=== PATIENT | female | born 1995 | race African-American/Black ===

== ENCOUNTER 2017-03-23 03:20 | Emergency (ER) | payer MEDICAID, OTHER ==
[~2017-03-23] VITALS: Ht 172.7 cm; Wt 80.0 kg
[~2017-03-23 03:20] MED LIST: BUSP10TA PO; LABE200T2 PO; MIRT30TA PO; NIFE20 PO
[2017-03-23 03:26] VITALS: PULSE 88; RESP 18; TEMP 98.1; O2SAT 100
[2017-03-23 03:28] VITALS: BP 136/80; PULSE 96; RESP 18; TEMP 98.1; O2SAT 100
--- NOTE | 2017-03-23 04:14 | PD ---
Physical Exam Time Seen by Provider: 04:13 Data Data Last Documented VS Vital Signs Date Time Temp Pulse Resp B/P Pulse Ox O2 Delivery O2 Flow Rate FiO2 03/23/17 03:28 98.1 96 18 136/80 100 Room Air [facility] Medical Record Reviewed: Yes Supervised Visit with SALEEM: No Procedures Procedure Narrative After the risks and benefits were discussed the following procedure was performed: INCISION AND DRAINAGE OF ABSCESS: The area was prepped and was sterilely draped. Topical ethyl chloride was used to anesthetize the area. The area was properly anesthetized. A [id number] scalpel was used to make a 1.5 -cm incision across the area of the abscess. Cultures were obtained. The abscess was drained an irrigated with normal saline. Quarter inch iodoform packing was placed in the wound. Sterile dressing applied. Patient advised to have packing removed in two days. Condition: Stable Ingrid James March 23, 2017 04:14
--- NOTE | 2017-03-23 04:31 | PD ---
HPI Chief Complaint: GI Complaint Time Seen by Provider: 03:57 Travel History International Travel<30 days: No Contact w/Intl Traveler<30days: No Traveled to known affect area: No History of Present Illness HPI 21-year-old female patient presents to the ER today with 2-3 days history of painful swelling on her buttocks. She states that there is no pain with bowel movements. She denies any fevers or any other issues. She states that the area is getting more painful and enlarging. Modifying Factors: None Associated Signs & Symptoms: Buttocks lump, pain Risk Factors: None PFSH Past Medical History Cardiovascular Problems: Yes (HTN) Hypertension: Yes Tetanus Vaccination: < 5 Years Influenza Vaccination: No ?: Not : 3 Para: 3 Past Surgical History Surgical History: No Previous Surgery Section: Yes (X2) Social History Alcohol Use: No Tobacco Use: No Substance Use: No Allergies-Medications (Allergen,Severity, Reaction): Coded Allergies: No Known Allergies (Unverified , 03/23/17) Reported Meds & Prescriptions Reported Meds & Active Scripts Active Nifedipine 20 Mg Cap 20 Mg PO DAILY Last refill until labs & visit (01/14/17) Labetalol (Labetalol HCl) 200 Mg Tab 200 Mg PO BID Last refill until labs & visit (01/14/17) Reported Buspirone (Buspirone HCl) 10 Mg Tab 10 Mg PO DAILY Mirtazapine 30 Mg Tab 30 Mg PO HS Review of Systems Except as stated in HPI: all other systems reviewed are Neg Physical Exam Narrative GENERAL: Well-developed young -[place] female patient currently in mild distress. Awake and oriented 3. SKIN: Focused skin assessment warm/dry. HEAD: Atraumatic. Normocephalic. EYES: Pupils equal and round. No scleral icterus. No injection or drainage. ENT: No nasal bleeding or discharge. Mucous membranes pink and moist. NECK: Trachea midline. No JVD. CARDIOVASCULAR: Regular rate and rhythm. No murmur appreciated. RESPIRATORY: No accessory muscle use. Clear to auscultation. Breath sounds equal bilaterally. GASTROINTESTINAL: Abdomen soft, non-tender, nondistended. Hepatic and splenic margins not palpable. RECTAL EXAM: There is a notable right buttocks 2 cm area of tenderness and fluctuance, stool is brown. No perirectal tenderness. MUSCULOSKELETAL: No obvious deformities. No clubbing. No cyanosis. No edema. NEUROLOGICAL: Awake and alert. No obvious cranial nerve deficits. Motor grossly within normal limits. Normal speech. PSYCHIATRIC: Appropriate mood and affect; insight and judgment normal. Data Data Last Documented VS Vital Signs Date Time Temp Pulse Resp B/P Pulse Ox O2 Delivery O2 Flow Rate FiO2 03/23/17 03:28 98.1 96 18 136/80 100 Room Air Orders Wound Culture And Gram Stain (03/23/17 04:13) MDM Medical Decision Making Medical Screen Exam Complete: Yes Emergency Medical Condition: Yes Medical Record Reviewed: Yes Differential Diagnosis Buttocks abscess versus perirectal abscess Narrative Course This appears to be a buttocks abscess with no signs of perirectal abscess. Case has been discussed with MARIAN who was able to do a incision and drainage on the patient without issues. Wound care instructions given. My plan would be to release her with follow-up to primary care physician for packing removal and wound check or to return to the ER she is not able to follow-up. The plan was discussed with the patient and she states understanding. Diagnosis Primary Impression: Abscess of buttock Med/Other Pt SpecificInfo: Prescription(s) given Scripts Ibuprofen (Motrin Ib)200 Mg [id number] Mg PO Q6H PRN (PAIN SCALE 1 TO 10) #21 TAB Ref 0 Prov:Apolinar Sun MD 03/23/17 Disposition: 01 DISCHARGE HOME Condition: Stable Apolinar Sun MD March 23, 2017 04:31
[2017-03-23] MEDS ORDERED: MOTR200T4 PO (04:43)
== END 2017-03-23 05:09 | disposition home or self-care (01) ==
LOC: NEPC 03:20
DX: L02.31 Cutaneous abscess of buttock (principal); I10 Essential (primary) hypertension; B96.89 Other specified bacterial agents as the cause of diseases classified elsewhere
CPT/HCPCS: 10061; 87070; 87185

== ENCOUNTER 2017-05-16 10:01 | Emergency (ER) | payer MEDICAID ==
[~2017-05-16 10:01] MED LIST changes: +MOTR200T4 PO
[2017-05-16 10:02] VITALS: BP 143/84; PULSE 109; RESP 20; TEMP 98.8; O2SAT 99
[2017-05-16] MEDS ORDERED: GABA600T PO (11:27)
== END 2017-05-16 13:27 | disposition left against medical advice (07) ==
LOC: NEPD 10:01
DX: R51 Headache (principal); Z53.21 Procedure and treatment not carried out due to patient leaving prior to being seen by health care provider
CPT/HCPCS: 99281